=== PATIENT | male | born 1950 | race Caucasian/White ===

== ENCOUNTER 2023-02-03 17:48 | Emergency (ER) | payer MEDICARE, BC ==
[~2023-02-03] VITALS: Ht 172.7 cm; Wt 71.0 kg
[2023-02-03] MEDS ORDERED: SULF1TAB49 PO (18:49)
[2023-02-03] MEDS ORDERED: LIDOcaine 1% W/epiNEPHrine 1:100,000 20ml vial IJ ONE (18:58)
[2023-02-03] MEDS ORDERED: sulfamethoxazole/trimethoprim DS (800/160mg) tablet PO ONE (19:30)
== END 2023-02-03 19:35 | disposition home or self-care (01) ==
LOC: ER 17:50
DX: L02.415 Cutaneous abscess of right lower limb (principal)
CPT/HCPCS: 10060; 87070; 87077; 87186; 99283; A6258; A6449